=== PATIENT | female | born 1955 | race Caucasian/White ===

== ENCOUNTER 2017-01-09 11:37 | Day surgery (SDC) | payer OTHER ==
[~2017-01-09] VITALS: Ht 162.6 cm; Wt 78.0 kg
[2017-01-09] MEDS ORDERED: LOSARTAN (12:14)
[2017-01-09 12:16] VITALS: Ht 162.6 cm; Wt 78.0 kg
[2017-01-09 13:05] VITALS: BP 202/91; PULSE 54; RESP 18
[2017-01-09] MEDS ORDERED: MEPERIDINE 50 MG INJ ONE (14:35)
[2017-01-09] MEDS ORDERED: MIDAZOLAM 1 MG/ML 2 ML INJ ONE (14:35)
[2017-01-09] MEDS ORDERED: FENTAnyl 50 MCG/ML VIAL ONE (14:35)
[2017-01-09 14:56] VITALS: BP 193/89; RESP 20
--- NOTE | 2017-01-09 16:10 | GILP ---
DATE OF PROCEDURE: 01/09/2017 PREOPERATIVE DIAGNOSIS: Screening colonoscopy. POSTOPERATIVE DIAGNOSIS: Normal colon except grade I internal hemorrhoids. DESCRIPTION OF PROCEDURE: The patient was put in left lateral decubitus after obtaining informed co nsent. 2 mg IV Versed and 50 mcg of fentanyl given and 25 mg IV Demerol given. Very carefully advanced Olympus video colonoscope all the way to cecum. Ileocecal valve, appendicea l opening identified. Photography done. Cecum, ascending colon, transverse colon, descending colon , sigmoid colon including retroflexion normal except for internal hemorrhoids. PLAN: The plan will be to follow up with primary MD. Repeat colonoscopy in 10 years. Dictated By: MARIA GUADALUPE LAWSON/CELESTE Conf#: [id number] DID#: [id number] CC: Elvis Levy MD;*EndCC*
== END 2017-01-09 16:13 | disposition home or self-care (01) ==
LOC: GIL 11:37
PROVIDERS: ATTEND Internal Medicine
DX: Z12.11 Encounter for screening for malignant neoplasm of colon (principal); K64.8 Other hemorrhoids; I10 Essential (primary) hypertension
CPT/HCPCS: 45378; J2175; J2250; J3010; Z7610